=== PATIENT | female | born 1990 | race Caucasian/White ===

== ENCOUNTER 2017-12-22 21:02 | Emergency (ER) | payer OTHER ==
[~2017-12-22] VITALS: Ht 160 cm; Wt 89.4 kg
[2017-12-22 21:18] VITALS: BP 131/82
[2017-12-22] MEDS ORDERED: IBUPROFEN 600 MG TABLET PO ONE ×2 (21:30→21:34)
== END 2017-12-22 21:43 | disposition home or self-care (01) ==
LOC: ER 21:08
DX: S30.0XXA Contusion of lower back and pelvis, initial encounter (principal); S60.211A Contusion of right wrist, initial encounter; Z60.2 Problems related to living alone; W01.0XXA Fall on same level from slipping, tripping and stumbling without subsequent striking against object, initial encounter; Y93.89 Activity, other specified; Y92.89 Other specified places as the place of occurrence of the external cause; Y99.8 Other external cause status
CPT/HCPCS: 99282; A4606; Z7610